=== PATIENT | female | born 1970 | race Two or more races ===

== ENCOUNTER 2023-04-10 18:12 | Emergency (ER) | payer OTHER ==
[~2023-04-10] VITALS: Ht 160 cm; Wt 61.2 kg
[2023-04-10] MEDS ORDERED: PROGESTERONE100 M1 (18:43)
[2023-04-10] MEDS ORDERED: ROSUVASTATIN CAL5 MG (18:43)
== END 2023-04-10 21:47 | disposition home or self-care (01) ==
LOC: ER 18:13
DX: Z91.09 Other allergy status, other than to drugs and biological substances (principal); Z20.822 Contact with and (suspected) exposure to COVID-19

== ENCOUNTER 2024-01-23 14:06 | Emergency (ER) | payer OTHER ==
[~2024-01-23] VITALS: Ht 162.6 cm; Wt 62.1 kg
[~2024-01-23 14:06] MED LIST: PROGESTERONE100 M1; ROSUVASTATIN CAL5 MG
[2024-01-23] MEDS ORDERED: KETOROLAC TROMETHAMINE 30 MG VIAL IM STA (16:32)
[2024-01-23] MEDS ORDERED: KETOROLAC TROMETHAMINE 30 MG VIAL ONE (16:42)
[2024-01-23] MEDS ORDERED: DICLOFENAC POTA50 MG PO (19:06)
== END 2024-01-23 19:30 | disposition home or self-care (01) ==
LOC: ER 14:08
DX: M25.511 Pain in right shoulder (principal); M25.521 Pain in right elbow

== ENCOUNTER 2024-07-02 20:53 | Emergency (ER) | payer OTHER ==
[~2024-07-02] VITALS: Ht 160 cm; Wt 63.5 kg
[~2024-07-02 20:53] MED LIST changes: +DICLOFENAC POTA50 MG PO
[2024-07-02] MEDS ORDERED: 0.9 % SODIUM CHLORIDE 1,000 ML IV STA (21:59)
[2024-07-02] MEDS ORDERED: ONDANSETRON HCL 2 MG/ML VIAL IV STA (22:00)
[2024-07-02] MEDS ORDERED: FAMOTIDINE/PF 20 MG in 0.9 % SODIUM CHLORIDE 8 ML IV PUSH STA (22:00)
[2024-07-02] MEDS ORDERED: MEPERIDINE HCL/PF 50 MG/ML VIAL IM ONE (22:00)
[2024-07-02] MEDS ORDERED: ONDANSETRON HCL 2 MG/ML VIAL ONE (22:20)
[2024-07-02] MEDS ORDERED: FAMOTIDINE/PF 20 MG/2 ML VIAL ONE (22:20)
[2024-07-03 00:17] LABS: URINE APPEARANCE Clear; URINE BILIRRUBIN Negative (NEGATIVE); URINE BLOOD Negative; URINE COLOR Yellow; URINE GLUCOSE Negative (NEGATIVE); URINE LEUKOCYTE Trace; URINE NITRATE Negative; URINE PROTEIN Negative (NEGATIVE); URINE UROBILINOGEN 0.2 E.U./dl
[2024-07-03 00:22] LABS: URINE BACTERIA 1537.2 uL (0.0-1933); URINE RBC 15.1 uL (0.0-20.8); URINE WBC 13.9 uL (0.0-23.2)
[2024-07-03 00:28] LABS: URINE CAST 0.14 uL (0.0-1.40); URINE KETONE 40 (NEGATIVE)
[2024-07-03 01:50] LABS: HEMATOCRIT 36.2 % (36.0-45.00); HEMOGLOBIN 12.3 g/dL (12.0-15.00); MEAN CELL VOLUME 87.5 fL (80.00-100.00); MEAN CORPUSCULAR HEMOGLOBIN 29.7 pg (27.00-32.0); MEAN CORPUSCULAR HGB CONC 33.9 g/dl (32.0-36.0); PLATELET COUNT 247 K/uL (150-450); RED BLOOD COUNT 4.14 M/uL (4.00-6.00); RED CELL DISTRIBUTION WIDTH 13.9 % (11.5-14.5)
[2024-07-03 02:24] LABS: ALBUMIN 3.4 gm/dL (3.4-5.0); BILIRUBIN TOTAL 0.58 mg/dL (0.3-1.2); CALCIUM 8.4 mg/dL (8.5-10.1); CREATININE SERUM 0.72 mg/dL (0.55-1.02); GFR 85.4; GLOBULINA 3.3 G/DL (2.4-3.5); POTASSIUM 3.85 mEq/L (3.5-5.1); TOTAL PROTEIN 6.7 gm/dL (6.4-8.2)
[2024-07-03] MEDS ORDERED: PEPCID40 MG PO (07:24)
[2024-07-03] MEDS ORDERED: ZOFRAN8 MG PO (07:24)
== END 2024-07-03 07:39 ==
LOC: ER 20:56
PROVIDERS: Emergency Medicine
DX: R10.9 Unspecified abdominal pain (principal); I10 Essential (primary) hypertension

== ENCOUNTER 2024-09-11 14:32 | Emergency (ER) | payer OTHER ==
[~2024-09-11] VITALS: Ht 160 cm; Wt 62.6 kg
[~2024-09-11 14:32] MED LIST changes: +PEPCID40 MG PO; +ZOFRAN8 MG PO
[2024-09-11] MEDS ORDERED: HYOSCYAMINE SULFATE 0.125 MG TAB.SUBL ONE (15:18)
[2024-09-11] MEDS ORDERED: HYOSCYAMINE SULFATE 0.125 MG TAB.SUBL SL ONE (15:30)
[2024-09-11 16:17] LABS: HEMATOCRIT 42.5 % (36.0-45.00); HEMOGLOBIN 14.4 g/dL (12.0-15.00); MEAN CELL VOLUME 87.5 fL (80.00-100.00); MEAN CORPUSCULAR HEMOGLOBIN 29.6 pg (27.00-32.0); MEAN CORPUSCULAR HGB CONC 33.9 g/dl (32.0-36.0); PLATELET COUNT 368 K/uL (150-450); RED BLOOD COUNT 4.86 M/uL (4.00-6.00)
[2024-09-11 16:31] LABS: PH,URINE 5.5 (5.0-8.0); URINE APPEARANCE Clear; URINE BILIRRUBIN Negative (NEGATIVE); URINE BLOOD Negative; URINE COLOR Yellow; URINE GLUCOSE Negative (NEGATIVE); URINE KETONE Trace (NEGATIVE); URINE LEUKOCYTE Negative; URINE NITRATE Negative; URINE PROTEIN Negative (NEGATIVE); URINE UROBILINOGEN 0.2 E.U./dl
[2024-09-11 16:35] LABS: URINE EPITHELIAL CELLS 4.8 uL (0.0-38.8); URINE RBC 4.7 uL (0.0-20.8)
[2024-09-11 16:39] LABS: ALBUMIN 4.2 gm/dL (3.4-5.0); BILIRUBIN TOTAL 0.58 mg/dL (0.3-1.2); CALCIUM 9.4 mg/dL (8.5-10.1); CREATININE SERUM 0.85 mg/dL (0.55-1.02); GFR 70.51; GLOBULINA 4.1 G/DL (2.4-3.5); POTASSIUM 3.76 mEq/L (3.5-5.1); TOTAL PROTEIN 8.3 gm/dL (6.4-8.2)
[2024-09-11 16:39] LABS: URINE CAST 0.14 uL (0.0-1.40)
== END 2024-09-11 17:48 | disposition home or self-care (01) ==
LOC: ER 14:33
PROVIDERS: General Practice
DX: R10.9 Unspecified abdominal pain (principal); I10 Essential (primary) hypertension